=== PATIENT | male | born 2000 | race Two or more races ===

== ENCOUNTER 2024-09-01 21:09 | Emergency (ER) | payer SELFPAY ==
[2024-09-01 21:58] VITALS: BP 166/117; PULSE 87; TEMP 37.3; O2SAT 97
--- NOTE | 2024-09-01 22:04 | XR_ITS ---
Examination: PA lateral chest 2 views TECHNIQUE: Upright lateral chest 2 views Date and time: September 01, 2024 1009 p.M. INDICATIONS: Shortness of breath beginning 2 days ago. FINDINGS: Normal heart size. Lungs are clear. The osseous structures are intact IMPRESSION: No active disease.
--- NOTE | 2024-09-01 22:04 | EKG_ITS ---
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
--- NOTE | 2024-09-01 22:14 | PD.EDURI ---
Upper Respiratory Inf. RME/HPI General Chief Complaint: Allergic Reaction Stated Complaint: RASH AND SWELLING FACE,SOB Time Seen by Provider: 09/01/24 22:03 Arrival date/time: 09/01/24 21:09 24M with history of HTN presents to ED with 2 days of muscle soreness/aches, as well as some cough and SOB. There is also a rash on face, but patient deniew new meds, foods, and hygiene products. Patient was started on lisinopril about 1 month ago. Patient states rash is neither itchy or painful. Limitations: no limitations Related Data Previous Rx's ?Medication ?Instructions ?Recorded docusate sodium 100 mg capsule 100 mg PO QDAY PRN constipation 08/11/23 (Colace) #20 caps lisinopril 10 mg tablet 10 mg PO QDAY #30 tabs 08/11/23 oxycodone-acetaminophen 5 mg-325 1 tab PO Q6H PRN pain #10 tabs 08/11/23 mg tablet (Percocet) Allergies Allergy/AdvReac Type Severity Reaction Status Date / Time hydralazine AdvReac Tachycardia Verified 09/02/23 13:59 Review of Systems Review of Systems Systems Reviewed: All systems reviewed, normal except as documented Constitutional Constitutional: Reports system reviewed and no additional complaints, except as documented, Reports as per HPI, Reports body ache(s), Denies fever(s) and Denies headache(s) ENT Ears, Nose, Mouth, and Throat: Denies disequilibrium and Denies headache(s) Cardiovascular Cardiovascular: Reports system reviewed and no additional complaints, except as documented, Denies chest pain and Reports dyspnea Respiratory Respiratory: Reports system reviewed and no additional complaints, except as documented, Reports cough and Reports dyspnea Gastrointestinal Gastrointestinal: Reports system reviewed and no additional complaints, except as documented, Denies abdominal pain, Denies nausea and Denies vomiting Integumentary/Breasts Skin/Breast: Reports as per HPI and Reports rash Neurologic Neurologic: Reports system reviewed and no additional complaints, except as documented, Denies confusion, Denies disequilibrium and Denies headache(s) Psychiatric Psychiatric: Denies confusion Past Medical History Past Medical History NEUROLOGIC: Negative Seizures CARDIAC: Negative Cardiac Disorders or Congestive Heart Failure RESPIRATORY: Negative Chronic Obstructive Pulmonary Disease (COPD) or Asthma GENITOURINARY: Negative Renal Disease ENDOCRINE: Negative Diabetes Mellitus Type 1 or Diabetes Mellitus Type 2 HEMATOLOGIC: Negative Sickle Cell Disease OTHER HISTORY: Negative Blood Transfusions, Blood Transfusion Reaction or Anesthesia Reactions Social History SMOKING STATUS: Current some day smoker SUBSTANCE USE: does not use ED Exam General Limitations: Present no limitations General appearance: Present alert and in no apparent distress Head Head exam: Present atraumatic Eye Eye exam: Present normal appearance, PERRL and EOMI ENT ENT exam: Present normal exam, normal oropharynx and mucous membranes moist Neck Neck exam: Present normal inspection, full ROM and trachea midline Chest Chest inspection: Present normal inspection and symmetric chest wall rise Respiratory Respiratory exam: Present normal lung sounds bilaterally Cardiovascular Cardiovascular exam: Present regular rate, normal rhythm and normal heart sounds Abdominal Exam Abdominal exam: Present soft and normal bowel sounds Extremities Exam Extremities exam: Present normal inspection and full ROM Back Exam Back exam: Present normal inspection and full ROM Neurological Exam Neurological exam: Present alert, oriented X3 and CN II-XII intact Psychiatric Psychiatric exam: Present normal affect and normal mood Skin Skin exam: Present warm, dry, intact, normal color and rash Course Quality Measures none Orders Category Date Time Status Bedside COVID-19 Antigen Test NOW Care 09/01/24 22:04 Completed Bedside Influenza A&B Antigen Test NOW Care 09/01/24 22:04 Completed EKG (ED ONLY) *Do not use* NOW Care 09/01/24 22:04 Completed EKG (ED Only) Stat Exams 09/01/24 22:04 Draft XR chest 2V Stat Exams 09/01/24 22:04 Completed CBC Stat Lab 09/01/24 22:10 Completed Comprehensive Metabolic Panel Stat Lab 09/01/24 22:10 Completed D-Dimer Stat Lab 09/01/24 22:10 Completed Troponin I Stat Lab 09/01/24 22:10 Completed Vital Signs Vital signs: Vital Signs Temperature 99.1 F 09/01/24 21:58 Pulse Rate 87 09/01/24 21:58 Blood Pressure 166/117 H 09/01/24 21:58 Pulse Oximetry (%) 97 09/01/24 21:58 Oxygen Delivery Method Room Air 09/01/24 21:58 O2 at 97% on RA and WNLs Upper Respiratory Infection MDM Narrative MDM Narrative:: 24M with history of HTN presents to ED with 2 days of muscle soreness/aches, as well as some cough and SOB. There is also a rash on face, but patient deniew new meds, foods, and hygiene products. Patient was started on lisinopril about 1 month ago. Patient states rash is neither itchy or painful. Physical exam reveals clear lungs and normal WOB. Speech normal. Mild red rash around mouth. No obvious rash on body. Patient is afebrile, calm, and alert. EKG is NSR. CXR normal. CMP unremarkable. No leukocytosis. Normal trop and D-dimer. COVID+. Patient data External records reviewed:: [facility] previous records Clinical information provided by:: patient Social determinants that could affect healthcare access:: none Patient has the following chronic illnesses:: HTN How is presenting disease/condition affected by chronic disease/condition?: uneffected by Evaluation data The following diagnostics were reviewed and interpreted by me:: lab results, radiology exam(s) and EKG tracing(s) Lab and/or radiology exams considered but not ordered:: ordered Interpretation Summary: above Medications / Prescriptions Medications or Prescriptions considered but not ordered:: not ordered Medication administrations:: n/a Consultations Consultation(s) initiated? (list below): No Diagnosis Upper Respiratory Differential Diagnosis: upper respiratory infection, croup, otitis media, sinusitis, viral infection, bronchitis, influenza, pharyngitis and other (LOPEZ-induced angioedema, PE) Most likely diagnosis given after review of the tests above:: COVID Admission Indicated Admission indicated?: not indicated Admission Request Was there a request for admission?: No Disposition Plan Disposition Plan: Discharge Discharge Attestation Discharge Attestation: The patient and all family members were given an opportunity to ask questions and understood the discharge instructions. Discharge instructions specifically effects, indications for sooner follow up or return to the emergency department, and the expected course of current diagnosis. Patient condition: Stable Discharge Plan Plan Patient Disposition: HOME (Self Care) Discharge Disposition comment: Stable Prescriptions/Referrals Prescriptions/Med Rec: No Action oxycodone-acetaminophen [Percocet] 5-325 mg tablet 1 tab PO Q6H MDD 6 tabs PRN (Reason: pain) Qty: 10 0RF docusate sodium [Colace] 100 mg capsule 100 mg PO QDAY PRN (Reason: constipation) Qty: 20 0RF lisinopril 10 mg tablet 10 mg PO QDAY Qty: 30 0RF Referrals: No Primary/Family,Physician [Primary Care Provider] - In 1 week Problem List Clinical Impression: COVID-19 Patient/Caregiver Discharge Instructions Education Materials: Caring for Someone Who Has COVID-19 Additional Instructions: Please follow-up with PCP within 24-48 hours and return immediately if symptoms worsen. Ibuprofen/Tylenol can be used simultaneously for greater fever/pain control. Benadryl is good for cough, congestion, and sleep. Print Language: Macedonian Stand Alone Forms: Work/School Release, Patient Portal Info Letter PA/[employer] Supervising Physician PA/[employer] Supervising Physician: Dr. Champagne
[2024-09-01 22:38] LABS: Basophils # (Auto) 0.1 Thou/mm3 (0.0-0.2); Basophils % (Auto) 1 % (0-2.5); Eosinophils # (Auto) 0.1 Thou/mm3 (0.0-0.5); Eosinophils % (Auto) 2 % (0-10); Hematocrit 48.4 % (41.0-53.0); Hemoglobin 17.3 g/dL (13.5-16.0); Immature Granulocytes Auto 0.03 Thou/mm3 (0.00-0.00); Lymphocytes # (Auto) 1.5 Thou/mm3 (1.0-4.8); Lymphocytes % (Auto) 19 % (10-50); Mean Corpuscular HGB Conc 35.7 g/dl (31.0-37.0); Mean Corpuscular Hemoglobin 29.3 pg (25.0-35.0); Mean Corpuscular Volume 82 fL (80-100); Monocytes # (Auto) 1.0 Thou/mm3 (0.0-0.8); Monocytes % (Auto) 13 % (0-12); Neutrophils # (Auto) 5.2 Thou/mm3 (1.8-7.7); Neutrophils % (Auto) 66 % (37-80); Nucleated Red Blood Cell # 0.00 Thou/mm3 (0.00-0.00); Nucleated Red Blood Cell % 0 /100 WBC (0); Platelet Count 274 Thou/mm3 (140-440); RDW Standard Deviation 38.9 fL (35.1-43.9); Red Blood Count 5.90 Miln/mm3 (4.50-5.90); White Blood Count 7.9 Thou/mm3 (3.8-10.6)
[2024-09-01 22:58] LABS: Alanine Aminotransferase 94 U/L (10-49); Albumin, Serum 4.8 gm/dL (3.5-5.0); Albumin/Globulin Ratio 1.7 (1.2-2.2); Alkaline Phosphatase 90 U/L (46-116); Anion Gap 14 (7-16); Aspartate Amino Transferase 86 U/L (0-34); BUN/Creatinine Ratio 6 Ratio (12-20); Bilirubin,Total 0.6 mg/dL (0.3-1.2); Blood Urea Nitrogen < 5 mg/dL (9-23); Calcium 9.5 mg/dL (8.3-10.6); Calcium (Corrected) 9.5 mg/dL (8.5-10.1); Carbon Dioxide 24.0 mMol/L (20.0-31.0); Chloride 97 mMol/L (98-107); Creatinine (Component) 0.8 mg/dL (0.6-1.3); Globulin 2.9 gm/dL (2.3-3.5); Glucose 106 mg/dL (74-106); Osmolality,Calculated 267 (275-295); Potassium 4.2 mMol/L (3.4-5.1); Sodium 135 mMol/L (136-145); Total Protein 7.7 gm/dL (5.7-8.2); Troponin I < 0.002 ng/mL (0.0-0.045); eGFR > 60 See Note
[2024-09-01 23:04] LABS: D-Dimer < 250 ng/mL (<600)
[2024-09-01 23:31] VITALS: BP 156/90; PULSE 90; TEMP 36.8; O2SAT 97
[2024-09-01 23:42] VITALS: RESP 16; O2SAT 98
== END 2024-09-01 23:42 | disposition home or self-care (01) ==
PROVIDERS: Physician Assistant; Emergency Provider Emergency Medicine
DX: U07.1 COVID-19 (principal); I10 Essential (primary) hypertension; R21 Rash and other nonspecific skin eruption
CPT/HCPCS: 36415; 71046; 80053; 84484; 85025; 85379; 87400; 87811; 93005; 99284